=== PATIENT | male | born 1975 | race Asian ===

== ENCOUNTER 2018-01-19 20:00 | Emergency (ER) | payer OTHER ==
[~2018-01-19] VITALS: Ht 188 cm; Wt 121.3 kg
[2018-01-19 20:25] VITALS: BP 135/74
--- NOTE | 2018-01-19 20:35 | NUR ---
PATIENT AMBULATED TO CHAIR E.
--- NOTE | 2018-01-19 20:38 | NUR ---
PATIENT PRESENTS TO ED WITH LOWER EXTREMITY ITCHINESS . PT DENIES N/V/D; SKIN IS PINK/WARM/DRY; AAOX4 WITH EVEN AND STEADY GAIT; LUNGS CLEAR BL; HR EVEN AND REGULAR; PT DENIES ANY FEVER, CP, SOB, OR COUGH AT THIS TIME; PATIENT STATES PAIN OF 0/10 AT THIS TIME; VSS; PATIENT POSITIONED FOR COMFORT SITTING IN CHAIR. ER MD MADE AWARE OF PT STATUS.
[2018-01-19 21:39] VITALS: BP 135/74
--- NOTE | 2018-01-19 21:39 | NUR ---
Patient discharged with v/s stable. Written and verbal after care instructions given and explained. Patient alert, oriented and verbalized understanding of instructions. Ambulatory with steady gait. All questions addressed prior to discharge. ID band removed. Patient advised to follow up with PMD. Rx of HYDROCORTISONE TOPICAL CREAM given. Patient educated on indication of medication including possible reaction and side effects. Opportunity to ask questions provided and answered.
== END 2018-01-19 21:39 | disposition home or self-care (01) ==
LOC: MED 20:00
DX: L30.9 Dermatitis, unspecified (principal)
CPT/HCPCS: 99282